=== PATIENT | female | born 1960 | race Two or more races ===

== ENCOUNTER 2023-06-02 06:56 | Outpatient (CLI) | payer MEDICAID | END 2023-06-02 23:59 | disposition home or self-care (01) | LOC: RAD 06:56 | PROVIDERS: ATTEND Nurse Practitioner Family | DX: R93.89 Abnormal findings on diagnostic imaging of other specified body structures (principal); I72.8 Aneurysm of other specified arteries | CPT/HCPCS: 76830; 76857; 93976 ==

== ENCOUNTER 2024-12-27 09:21 | Outpatient (CLI) | payer MEDICAID ==
[2024-12-27] MEDS ORDERED: simethicone 40mg/0.6ml oral drops 15ml ONE (11:30)
--- NOTE | 2024-12-27 11:45 | RADIOLOGY REPORT ---
MRI Abdomen, MRCP IV Contrast Exam Date: 12/27/2024 10:27 AM Comparison: None History: CYST OF PANCREAS Technique: Multisequence multiplanar MRI images were obtained of the abomen. MRCP including 3D SPACE, Radial 2D slabs and SPACE 3D MIP images Findings: Liver: Hepatic steatosis. Spleen: Unremarkable. Pancreas: The pancreas is normal in appearance without focal lesions. Gallbladder and ducts: Gallbladder is normal in appearance. The cystic duct, right and left hepatic ducts, common hepatic duct, and common bile ducts are unremarkable. The pancreatic duct is within normal limits. Adrenal glands: Unremarkable. Kidneys: Normal enhancement without suspicious lesions or hydronephrosis. Visualized bowel: Grossly unremarkable. Vasculature: Unremarkable. Lymphadenopathy: No evidence for lymphadenopathy. Ascites: Absent. Musculoskeletal: Bone marrow signal is normal. IMPRESSION: Hepatic steatosis. Pancreas is unremarkable.
[2024-12-27] MEDS ORDERED: GADOTERATE MEGLUMINE 7.5 MMOL/15 ML VIAL IV ONE (18:09)
== END 2024-12-27 23:59 | disposition home or self-care (01) ==
LOC: MRI 09:21
DX: K76.0 Fatty (change of) liver, not elsewhere classified (principal); K86.2 Cyst of pancreas
CPT/HCPCS: 74183; A9575